=== PATIENT | female | born 1980 | race Caucasian/White ===

== ENCOUNTER → 2019-02-28 | Outpatient (CLI) | payer OTHER ==
[~2019-02-28] MED LIST: ACETAMINOPHEN PO; DOCUSATE SODIU100 MG PO; HYDROCORTISO453.6 G1 RC; PERCOCET 5-3251 EACH PO; PRENATAL TABLE1 EAC1 PO; Relafen PO
== END | disposition home or self-care (01) ==
LOC: PRENATAL 15:00
DX: O26.891 Other specified pregnancy related conditions, first trimester (principal); O09.91 Supervision of high risk pregnancy, unspecified, first trimester

== ENCOUNTER 2019-03-08 06:32 | Inpatient (IN) | payer OTHER ==
[~2019-03-08] VITALS: Ht 160 cm; Wt 4.1 kg
[~2019-03-08 06:32] MED LIST changes: -PERCOCET 5-3251 EACH PO; -PRENATAL TABLE1 EAC1 PO
[2019-03-08] MEDS ORDERED: PRENATAL TABLE1 EAC1 PO (08:10)
[2019-03-11] MEDS ORDERED: PERCOCET 5-3251 EACH PO ×2 (10:10)
== END 2019-03-11 12:16 | DRG 785 ==
LOC: SURG-SUITE 06:32 → LDR 06:32 → O/R 08:54 → OB/GYN 10:09 → SURG-SUITE 12:06
PROVIDERS: ADMIT Obstetrics & Gynecology
PROC: 4A1HXCZ Monitoring of Products of Conception, Cardiac Rate, External Approach (ICD-10-PCS; 2019-03-08)
PROC: 0UB70ZZ Excision of Bilateral Fallopian Tubes, Open Approach (ICD-10-PCS; 2019-03-08)
PROC: 10D00Z1 Extraction of Products of Conception, Low, Open Approach (ICD-10-PCS; principal; 2019-03-08 07:00)
DX: O36.63X0 Maternal care for excessive fetal growth, third trimester, not applicable or unspecified (principal); Z3A.38 38 weeks gestation of pregnancy; Z37.0 Single live birth; Z22.330 Carrier of Group B streptococcus; Z30.2 Encounter for sterilization